=== PATIENT | female | born 1970 ===

== ENCOUNTER → 2017-10-09 | Outpatient (CLI) | payer OTHER ==
[~2017-10-09] MED LIST: ASCO1TAB PO; IBU600 PO; IBU800 PO; PER PO
--- NOTE | 2017-10-10 08:27 | RADIOLOGY IMAGING REPORT ---
[place] [facility] [place] DEISY MIDDLETON : [id number] MR: [id number] V: [id number] EXAM DATE: [id number] ORDERING PHYSICIAN: ROSENDO VERGARA TECHNOLOGIST: Alina Lozano PROCEDURE:BILATERAL DIGITAL SCREENING MAMMOGRAM WITH CAD ASSISTED INTERPRETATION & 3D TOMOSYNTHESIS COMPARISON:Prior mammograms 06/15/15, 05/22/13, 05/21/13. INDICATIONS:screening FINDINGS: Moderately dense fibroglandular tissue is seen throughout the breasts. There are several rounded masses identified in the lateral portion of the Right breast on the Right CC view these appear to be in the upper portion Right breast on the Right MLO view. Right breast Ultrasound recommended for further evaluation. DIAGNOSTIC CATEGORY 0--INCOMPLETE: NEED ADDITIONAL IMAGING EVALUATION. RECOMMENDATIONS: ULTRASOUND: RIGHT BREAST. IMPRESSION: BIRADS 0: Incomplete Right breast Ultrasound recommended for further evaluation. Dictated by: Joan Garces M.D. on 10/09/2017 at 14:44 Transcribed by: COLEEN on 10/09/2017 at 14:49 Approved by: Joan Garces M.D. on 10/10/2017 at 8:26 [facility]
== END ==
LOC: MAMO 01:54
PROVIDERS: ATTEND Obstetrics & Gynecology
DX: Z12.31 Encounter for screening mammogram for malignant neoplasm of breast (principal); R92.8 Other abnormal and inconclusive findings on diagnostic imaging of breast
CPT/HCPCS: 77063; 77067

== ENCOUNTER → 2017-10-15 | Outpatient (CLI) | payer OTHER ==
--- NOTE | 2017-10-16 11:14 | RADIOLOGY IMAGING REPORT ---
FACILITY: [facility] - [place] PATIENT NAME: DEISY MIDDLETON : [id number] MR: [id number] V: [id number] EXAM DATE: [id number] ORDERING PHYSICIAN: ROSENDO VERGARA TECHNOLOGIST: Naif Viera PROCEDURE:US RIGHT BREAST COMPLETE COMPARISON:Prior mammogram 10/09/17. INDICATIONS:further evaluation FINDINGS: In the 12 o'clock position of the Right breast 2cm from the nipple is a 1.1cm cyst. In the 11:45 position of the Right breast 2cm from the nipple is a 1.3cm cyst. In the 11:45 position of the Right breast 3cm from the nipple is a 3.2mm cyst. In the 12 o'clock position of the Right breast 3cm from the nipple is a 4.4mm cyst. DIAGNOSTIC CATEGORY 2--BENIGN FINDING. RECOMMENDATIONS: ROUTINE MAMMOGRAM AND CLINICAL EVALUATION. IMPRESSION: BIRADS 2: Benign finding There are multiple cysts in the 11:45 to 12 o'clock position of the Right breast likely accounting for the recent mammographic findings. Dictated by: Joan Garces M.D. on 10/15/2017 at 15:12 Transcribed by: COLEEN on 10/16/2017 at 8:20 Approved by: Joan Garces M.D. on 10/16/2017 at 11:14 [facility]
== END ==
LOC: US 01:34
PROVIDERS: ATTEND Obstetrics & Gynecology
DX: N60.01 Solitary cyst of right breast (principal)